=== PATIENT | female | born 1975 | race Caucasian/White ===

== ENCOUNTER 2021-03-23 13:32 | Emergency (ER) | payer BC, OTHER ==
[~2021-03-23] VITALS: Ht 160 cm; Wt 95.3 kg
[~2021-03-23 13:32] MED LIST: LOVENOX60 MG/0.6 SC; PRENATAL TABLE1 EAC1; PROGESTERO50 MG/1 ML; [UNRECOGNIZED DRUG - OTHER]
[2021-03-23] MEDS ORDERED: ONDANSETRON HCL INJ 2MG/ML 2ML 2 MG/ML VIAL IV STA (13:46)
[2021-03-23] MEDS ORDERED: Morphine 2mg Syringe 2 MG/ML SYR IV ONE (14:00)
[2021-03-23] MEDS ORDERED: ASPIRIN 81 MG CHEW TAB PO ONE (14:00)
[2021-03-23] MEDS ORDERED: SODIUM CHLORIDE 0.9% 1000ML 1,000 ML IV ONE (14:00)
[2021-03-23 14:06] LABS: BASOPHILS % 0.9 % (0.0-1.0); EOSINOPHILS # (AUTO) 0.2 (0.0-0.4); EOSINOPHILS % 3.2 % (0.0-6.0); HEMATOCRIT 39.2 % (34.2-44.1); HEMOGLOBIN 12.3 g/dL (12.0-16.0); LYMPHOCYTES # (AUTO) 1.6 (1.0-3.2); LYMPHOCYTES % 34.6 % (18.0-39.1); MEAN CORPUSCULAR HGB CONC 31.4 g/dL (31-35); MEAN CORPUSCULAR VOLUME 89.3 fL (81-99); MONOCYTES # (AUTO) 0.3 (0.2-0.8); MONOCYTES % 6.7 % (4.4-11.3); NEUTROPHILS # (AUTO) 2.5 (2.1-6.9); NEUTROPHILS % 54.4 % (38.7-80.0); PLATELET COUNT 264 x10e3/uL (140-360); RED BLOOD COUNT 4.39 x10e6/uL (3.6-5.1); RED CELL DISTRIBUTION WIDTH 12.1 % (11.7-14.4)
[2021-03-23 14:15] LABS: INR 0.95; PROTHROMBIN TIME 13.4 seconds (11.9-14.5)
[2021-03-23 14:16] LABS: PARTIAL THROMBOPLASTIN TIME 28.3 seconds (23.8-35.5)
[2021-03-23 14:23] LABS: ALBUMIN 3.7 g/dL (3.5-5.0); ALBUMIN/GLOBULIN RATIO 1.2 (0.8-2.0); CALCIUM 8.9 mg/dL (8.4-10.2); CREATININE, SERUM 0.77 mg/dL (0.57-1.11); POTASSIUM 3.3 mmol/L (3.5-5.1)
[2021-03-23 14:24] LABS: ANION GAP 5.3 mmol/L (8-16)
[2021-03-23 14:29] LABS: CREATINE KINASE MB 0.2 ng/mL (0-5.0)
[2021-03-23] MEDS ORDERED: POTASSIUM CHLORIDE 20 MEQ TAB CR PO STA (15:40)
[2021-03-23] MEDS ORDERED: IOPAMIDOL 370 MG/ML 200 ML INFUS..BTL INJ ONE (16:31)
[2021-03-23] MEDS ORDERED: SODIUM CHLORIDE 0.9% 50ML 50 ML ONE (16:31)
== END 2021-03-23 16:36 | disposition home or self-care (01) ==
LOC: ER 14:20
DX: R07.89 Other chest pain (principal); M06.9 Rheumatoid arthritis, unspecified; D68.2 Hereditary deficiency of other clotting factors; Z20.822 Contact with and (suspected) exposure to COVID-19
CPT/HCPCS: 36415; 71045; 71260; 80053; 82550; 82553; 83690; 83880; 84484; 85025; 85379; 85610; 85730; 93005; 99284; J7030; Q9967; U0002

== ENCOUNTER 2024-11-12 13:07 | Emergency (ER) | payer BC ==
[~2024-11-12] VITALS: Ht 160 cm; Wt 91.2 kg
[~2024-11-12 13:07] MED LIST changes: +PANTOPRAZOLE SO40 MG PO
[2024-11-12 14:29] LABS: BASOPHILS % 1.0 % (0.0-1.0); EOSINOPHILS % 2.2 % (0.0-6.0); LYMPHOCYTES % 25.8 % (18.0-39.1); MONOCYTES % 7.9 % (4.4-11.3); NEUTROPHILS % 62.8 % (38.7-80.0); RED CELL DISTRIBUTION WIDTH 13.4 % (11.7-14.4)
[2024-11-12 14:51] LABS: EST GLOMERULAR FILTRATION RATE 89.0 ML/MIN (>=60)
[2024-11-12] MEDS: CARBAMAZEPINE 100 MG TAB PO STA (14:53)
[2024-11-12] MEDS ORDERED: IOPAMIDOL 370 MG/ML 100 ML INFUS..BTL INJ ONE (15:10)
[2024-11-12 16:30] VITALS: PULSE 75; RESP 15; TEMP 98.3
[2024-11-12] MEDS ORDERED: PENICILLIN V P500 MG PO (16:46)
[2024-11-12] MEDS ORDERED: CARBAMAZEPINE100 M1 PO (16:46)
[2024-11-12 17:09] VITALS: BP 125/80; PULSE 74; RESP 16; TEMP 98.2; O2SAT 100
== END 2024-11-12 17:00 | disposition home or self-care (01) ==
LOC: ER 14:09
DX: G50.1 Atypical facial pain (principal); K04.7 Periapical abscess without sinus; K02.9 Dental caries, unspecified; M06.9 Rheumatoid arthritis, unspecified; D68.2 Hereditary deficiency of other clotting factors; F90.9 Attention-deficit hyperactivity disorder, unspecified type; G50.0 Trigeminal neuralgia; Z86.718 Personal history of other venous thrombosis and embolism
CPT/HCPCS: 36415; 70450; 70487; 80053; 85025; 99284; Q9967